=== PATIENT | female | born 1995 | race Caucasian/White ===

== ENCOUNTER → 2018-01-12 | Outpatient (CLI) | payer OTHER ==
--- NOTE | 2018-01-13 05:12 | MG ---
cc: TRISTAN MENON Lab No: [id number] Date: 01/12/2018 Age: Sex: F Race: TECHNIQUE A 17 channel EEG. DESCRIPTION The background rhythm is that of a symmetrical alpha rhythm, frequency 8 Hz. Amplitude is about 20 microvolts. During drowsiness there is mild slowing in the theta range. There are no lateralizing features identified. The patient does fall asleep and normal sleep spindles are seen. No epileptiform discharges are present. Hyperventilation was done with good effort with no change in the background rhythm. Vertex sharp waves are identified also consistent with normal sleep activity. Photic stimulation results in normal driving response. INTERPRETATION Normal EEG. MD SRINIVASA Hinojosa/MARYJO /8:37 PM /5:04 AM
== END ==
LOC: HEEG 07:38
PROVIDERS: ATTEND Psychiatry & Neurology Neurology
DX: R51 Headache (principal)
CPT/HCPCS: 95819